=== PATIENT | female | born 1990 | race Caucasian/White ===

== ENCOUNTER 2017-12-23 01:38 | Inpatient (IN) | payer MEDICAID ==
[2017-12-23] MEDS ORDERED: LACTATED RINGER'S 1,000 ML IV (02:16)
[2017-12-23] MEDS ORDERED: LIDOCAINE 1% (MPF) 30 ML INJ INJ (02:30)
[2017-12-23] MEDS ORDERED: BUTORPHANOL 2 MG INJ IV (02:30)
[2017-12-23] MEDS ORDERED: METHYLERGONOVINE 0.2 MG INJ IM (02:30)
[2017-12-23] MEDS ORDERED: MISOPROSTOL 200 MCG TAB PR (02:30)
[2017-12-23] MEDS ORDERED: CARBOPROST 250 MCG INJ IM (02:30)
[2017-12-23] MEDS ORDERED: OXYTOCIN 30 UNITS/LR 500 ML IV ×2 (02:30)
[2017-12-23] MEDS: LACTATED RINGER'S 1,000 ML IV ×3 (03:01→12:54)
[2017-12-23] MEDS: AMPICILLIN 2 GM/NS (PMX) 100 ML IV (03:04)
[2017-12-23 03:15] LABS: ADD MAN DIFF? NO
[2017-12-23 03:16] LABS: WHITE BLOOD COUNT 9.3 10^3/ul (4.8-10.8)
[2017-12-23 03:16] LABS: BASOPHILS % 0.3 % (0.0-2.0); EOSINOPHILS # 0.1 10^3/ul (0.0-0.5); EOSINOPHILS % 1.5 % (0.0-7.0); HEMATOCRIT 34.8 % (37.0-47.0); HEMOGLOBIN 11.8 g/dl (12.0-16.0); LYMPHOCYTES # 2.3 10^3/ul (0.8-2.9); LYMPHOCYTES % 24.9 % (15.0-51.0); MEAN CORPUSCULAR HEMOGLOBIN 28.6 pg (29.0-33.0); MEAN CORPUSCULAR HGB CONC 33.9 g/dl (32.0-37.0); MEAN CORPUSCULAR VOLUME 84.5 fl (82.0-101.0); MEAN PLATELET VOLUME 12.6 fl (7.4-10.4); MONOCYTES % 10.4 % (0.0-11.0); NEUTROPHIL # 5.8 10^3/ul (1.6-7.5); NEUTROPHILS % 62.5 % (39.0-77.0); PLATELET COUNT 168 10^3/UL (140-415); RED BLOOD COUNT 4.12 10^6/ul (4.20-5.40); RED CELL DISTRIBUTION WIDTH 13.5 % (11.5-14.5)
[2017-12-23 03:46] LABS: GLUCOSE 110 mg/dl (70-220)
[2017-12-23 03:47] LABS: INR 0.98; PROTIME 13.1 Sec (11.9-14.9)
[2017-12-23 03:48] LABS: PARTIAL THROMBOPLASTIN TIME 28.4 Sec (25.0-35.0)
[2017-12-23] MEDS: OXYTOCIN 30 UNITS/LR 500 ML IV ×2 (05:47→23:29)
[2017-12-23] MEDS: AMPICILLIN 1 GM/NS (PMX) 50 ML IV ×5 (07:01→22:30)
[2017-12-23] MEDS ORDERED: FENTAnyl 2MCG/ML-ROPIV 0.2% 100 ML (13:09)
[2017-12-23] MEDS: DEXTROSE 5%-LR 1,000 ML IV (14:20)
[2017-12-23] MEDS ORDERED: DIPHENHYDRAMINE 50 MG INJ IV (15:30)
[2017-12-23] MEDS ORDERED: NALOXONE (0.4 MG/ML) INJ IV (15:30)
[2017-12-23] MEDS ORDERED: ONDANSETRON 4 MG INJ IV (15:30)
[2017-12-23] MEDS: FENTAnyl 2MCG/ML-ROPIV 0.2% 100 ML BAG EPI (20:21)
[2017-12-23 22:00] LABS: RAPID PLASMA REAGIN NONREACTIVE (NR)
[2017-12-23] MEDS: MINERAL OIL LIGHT 10 ML VIAL TOP (23:29)
[2017-12-24] MEDS: IBUPROFEN 600 MG TAB PO ×5 (00:04→23:52)
[2017-12-24] MEDS: DEXTROSE 5%-LR 1,000 ML IV ×3 (01:24→17:06)
[2017-12-24] MEDS: LACTATED RINGER'S 1,000 ML IV* ×3 (01:24→17:06)
[2017-12-24] MEDS ORDERED: BENZOCAINE 20% 56 ML SPRAY TOP (01:30)
[2017-12-24] MEDS ORDERED: SENNA/DOCUSATE NA (8.6MG/50MG) TAB PO (01:30)
[2017-12-24] MEDS ORDERED: METHYLERGONOVINE 0.2 MG INJ IM (01:30)
[2017-12-24] MEDS ORDERED: ZOLPIDEM 5 MG TAB PO (01:30)
[2017-12-24] MEDS ORDERED: DIBUCAINE 1% 30 GM OINT PR (01:30)
[2017-12-24] MEDS ORDERED: ONDANSETRON 4 MG INJ IV (01:30)
[2017-12-24] MEDS ORDERED: DIPHENHYDRAMINE 50 MG INJ IV (01:30)
[2017-12-24] MEDS ORDERED: LANOLIN 7 GM TUBE TOP (01:30)
[2017-12-24] MEDS ORDERED: OXYCODONE/ASPIRIN (4.88/325) TAB PO (01:30)
[2017-12-24] MEDS ORDERED: ACETAMINOPHEN 325 MG TAB PO (01:30)
[2017-12-24] MEDS ORDERED: WITCH HAZEL/GLYCERIN PAD PR (01:30)
[2017-12-24] MEDS ORDERED: MISOPROSTOL 200 MCG TAB PR (01:30)
[2017-12-24] MEDS ORDERED: OXYTOCIN 30 UNITS/LR 500 ML IV (01:30)
[2017-12-24] MEDS ORDERED: CARBOPROST 250 MCG INJ IM (01:30)
[2017-12-24 07:40] LABS: ADD MAN DIFF? NO
[2017-12-24 07:46] LABS: ABNORMAL IP MESSAGE 1; BASOPHILS % 0.2 % (0.0-2.0); EOSINOPHILS % 0.2 % (0.0-7.0); HEMATOCRIT 32.2 % (37.0-47.0); LYMPHOCYTES # 1.8 10^3/ul (0.8-2.9); LYMPHOCYTES % 14.5 % (15.0-51.0); MEAN CORPUSCULAR HEMOGLOBIN 28.6 pg (29.0-33.0); MEAN CORPUSCULAR HGB CONC 34.2 g/dl (32.0-37.0); MEAN CORPUSCULAR VOLUME 83.9 fl (82.0-101.0); MEAN PLATELET VOLUME 13.2 fl (7.4-10.4); MONOCYTE # 1.3 10^3/ul (0.3-0.9); MONOCYTES % 10.1 % (0.0-11.0); NEUTROPHIL # 9.5 10^3/ul (1.6-7.5); NEUTROPHILS % 74.6 % (39.0-77.0); PLATELET COUNT 164 10^3/UL (140-415); RED BLOOD COUNT 3.84 10^6/ul (4.20-5.40); RED CELL DISTRIBUTION WIDTH 13.8 % (11.5-14.5)
[2017-12-24 07:46] LABS: WHITE BLOOD COUNT 12.7 10^3/ul (4.8-10.8)
[2017-12-24 07:48] LABS: POSITIVE DIFF @See below
[2017-12-25] MEDS: DEXTROSE 5%-LR 1,000 ML IV (01:24)
[2017-12-25] MEDS: LACTATED RINGER'S 1,000 ML IV* (01:24)
[2017-12-25] MEDS: IBUPROFEN 600 MG TAB PO ×2 (05:47→12:12)
[2017-12-25] MEDS: INFLUENZA VIRUS VACCINE 0.5 ML (DISPENSING) IM* (09:00)
[2017-12-25] MEDS: DIPHTH/TET/ACEL PERTUSS (ADULT) 0.5 ML VIAL IM* (09:00)
[2017-12-25] MEDS: MEASLES,MUMPS,RUBELLA VACCINE INJ SC* (09:00)
== END 2017-12-25 14:20 | disposition home or self-care (01) | DRG 775 ==
LOC: OBT 01:38 → PP1 12-24 01:12 → L-D 01:42 → OBT 02:24 → L-D 02:25
PROVIDERS: Obstetrics & Gynecology
PROC: 10E0XZZ Delivery of Products of Conception, External Approach (ICD-10-PCS; principal; 2017-12-23)
DX: O24.420 Gestational diabetes mellitus in childbirth, diet controlled (principal); Z68.41 Body mass index [BMI] 40.0-44.9, adult; Z37.0 Single live birth; O99.214 Obesity complicating childbirth; E66.01 Morbid (severe) obesity due to excess calories; Z3A.38 38 weeks gestation of pregnancy
CPT/HCPCS: 62319; 76815; 76818; 82947; 82962; 85025; 85610; 85730; 86592; 86850; 86900; 86901